=== PATIENT | female | born 1980 | race Caucasian/White ===

== ENCOUNTER 2022-01-10 16:25 | Emergency (ER) | payer OTHER, SELFPAY ==
[2022-01-10 16:35] VITALS: BP 130/60; PULSE 82; RESP 16; TEMP 37.1; O2SAT 98
--- NOTE | 2022-01-10 16:35 | ED.SKABFB ---
HPI - Skin/Abscess/Foreign Bdy General Chief complaint: Skin/Abscess/Foreign Body Stated complaint: Skin Sore Time Seen by Provider: 01/10/22 16:35 Source: patient Mode of arrival: ambulatory Limitations: no limitations History of Present Illness HPI narrative: 41-year-old female presents with pain and swelling to the left elbow. States that yesterday she had a small red spot that looked like a bug bite and she popped it. Today she woke up with worsening of pain and swelling. Afebrile. Range of motion normal to left elbow. Unsure if she was bit by an insect. All systems reviewed and negative except as noted above. Related Data Allergies Allergy/AdvReac Type Severity Reaction Status Date / Time No Known Allergies Allergy Verified 01/10/22 16:38 Review of Systems Review of Systems: CONSTITUTIONAL: Denies fever, chills, or sweats. EYES: Denies visual changes, redness, or discharge. ENT: Denies rhinorrhea, congestion, sore throat, or otalgia. CARDIOVASCULAR: Denies chest pain, palpitations, or edema. RESPIRATORY: Denies cough or dyspnea. GASTROINTESTINAL: Denies abdominal pain, nausea, vomiting, or diarrhea. GENITOURINARY: Denies dysuria or hematuria. SKIN: Denies rash or itching. Reports pain and redness to left elbow. MUSCULOSKELETAL: Denies back pain, joint pain, or myalgia. NEUROLOGIC: Denies headache, numbness, or weakness. PSYCHIATRIC: Denies anxiety or depression. All other systems reviewed are negative, except as documented in HPI. PMFSH Comments At time of signature, agree with nursing past medical, surgical, social and family history. There is no relevant family history pertinent to the presenting complaint. Exam Narrative: GENERAL: This is a well-nourished, well-developed patient, in no apparent distress. HEAD: normocephalic, atraumatic. EYES: PERRL. Sclera clear/white. Vision is grossly intact. EARS: External ears normal NOSE: External nose normal R. NECK: Neck supple, non-tender without lymphadenopathy, masses or thyromegaly. CARDIOVASCULAR: Regular rate and rhythm without murmurs, gallops, or rubs. RESPIRATORY: Clear to auscultation. Breath sounds equal bilaterally. No wheezes, rales, or rhonchi. SKIN: warm, Dry, intact with no suspicious lesions or rash, good texture and turgor. 2cm raised area to proximal forearm, posterior aspect, with surround swelling. Raised area is scabbed to center where pt opened and drained it. there is no fluctuance. NEURO: awake, alert, and oriented to person, place and time. There were no obvious focal neurologic abnormalities. EXTREMITIES: Normal range of motion to all extremities. Course Course Level of Care: Express Care Visit Vital Signs Vital signs: Vital Signs Temperature 37.1 C 01/10/22 16:35 Pulse Rate 82 01/10/22 16:35 Respiratory Rate 16 01/10/22 16:35 Blood Pressure 130/60 01/10/22 16:35 Pulse Oximetry 98 01/10/22 16:35 Temperature 37.1 C 01/10/22 16:35 Pulse Rate 82 01/10/22 16:35 Respiratory Rate 16 01/10/22 16:35 Blood Pressure 130/60 01/10/22 16:35 Pulse Oximetry 98 01/10/22 16:35 reviewed MDM - Skin/Abscess/Foreign Bdy MDM Narrative Medical decision making narrative: abscess vs insect bite. was drained by pt. no fluctuance for I and D today. will rx clindamycin. Patient is aware of diagnosis, understands and agrees to treatment plan. Anticipatory guidance given. Patient agrees to follow-up as directed and is aware of reasons to seek care at the emergency department. Portions of this record may have been created with voice recognition software Discharge Plan Discharge Clinical Impression: Abscess of left elbow Patient Disposition: Home, Self-Care Condition: Stable Instructions: Antibiotic Form, Abscess (ED) Additional Instructions: Take antibiotics as prescribed until gone. Take ibuprofen every 6 to 8 hours to treat pain. Apply a warm compress for 15 minutes four times a day. Return t
== END 2022-01-10 16:50 | disposition home or self-care (01) ==
PROVIDERS: Emergency Provider Nurse Practitioner Family
DX: L02.414 Cutaneous abscess of left upper limb (principal)
CPT/HCPCS: 99213; G0463